=== PATIENT | male | born 1985 | race Caucasian/White ===

== ENCOUNTER 2025-06-30 02:57 | Observation (INO) ==
--- NOTE | 2025-06-30 03:11 | Emergency Department Note ---
Impression & Plan Kidney symptom or sign Admission ED Provider Note HPI: History obtained from patient. The patient is a 39-year-old gentleman who presents emergency department with a chief complaint of left flank pain. Patient states he has had this pain for about the past 3 hours, he states the pain is sharp and severe. Patient states he has not had similar symptoms in the past. Patient states the pain does radiate somewhat down to his left groin. On arrival here to the ED the patient is hypertensive but otherwise hemodynamically stable. He appears to be in mild distress secondary to pain on my initial assessment. ROS: - Per HPI Differential Diagnosis: Kidney stone, pyelonephritis, urinary tract infection, diverticulitis, acute cholecystitis, acute appendicitis, amongst other potential pathologies. *Outpatient medications and allergy history reviewed. PE: General: Alert HEENT: Normocephalic, trachea midline Eyes: Extraocular eye movement is intact, no scleral erythema Pulmonary: Clear to auscultation bilaterally, no wheezing Cardio: Regular rate and rhythm GI: Abdomen is soft to palpation : No suprapubic tenderness, there is mild left-sided CVA tenderness to palpation MSK: No evidence of trauma or malformation of the extremities, no edema Skin: No evidence of rash Neuro: Alert, no focal deficits Psychiatric: Cooperative INDEPENDENT INTERPRETATIONS: campus monitor: (As interpreted by myself): - An order was placed for continuous cardiac monitoring - Patient was noted to be in sinus rhythm with a rate of 62 Interventions provided in ED: - IV morphine, IV Zofran, IV Toradol, IV fluid bolus, IV ceftriaxone Medical Decision Making: IV was established and lab work obtained, patient was placed on campus monitor. Lab work shows a leukocytosis of 12.62, hemoglobin is normal, platelet count is normal, CMP does not show any evidence of any acute kidney injury, there is no transaminitis, lipase is normal. Urinalysis shows 3+ blood, 1+ leukocyte esterase with moderate pyuria, urine nitrite is negative, will send for culture. CT imaging of the abdomen pelvis without contrast shows evidence of a 2 mm kidney stone at the left UVJ with a mildly swollen left kidney with perinephric fat stranding and smudging per the interpreting radiologist. Over suspicion for kidney infection, blood cultures were drawn and the patient was started on ceftriaxone. Urology was consulted and the patient was evaluated at the bedside by Flip Aries, PA-C. Recommendation was made to admit to medicine. I did consult with the hospitalist, Dr. Overton, and the patient was placed for admission in stable condition. Consultants/Discussions held with other healthcare providers: - Urology, Dr. Conn/Flip Chris PA-C - Hospitalist, Dr. Overton Disposition discussion held by myself with: - Patient Diagnosis: 1. Left-sided pyelonephritis, acute 2. Ureteral stone, acute, UVJ 3. Leukocytosis, acute 4. Nausea and vomiting, acute Disposition: Admission Eduar Fabian DO Emergency Medicine Past Med/Surg History Problem List (Updated 06/30/25 @ 05:34 by Eduar Fabian DO) Kidney symptom or sign (Acute) Nephrolithiasis Acid reflux Anxiety Abdominal pannus Medical History History of borderline diabetes mellitus Hx of sleep apnea Surgical History History of root canal procedure 12/2021 No pertinent past surgical history Family History Father Diabetes Grandmother (Maternal) Alzheimer disease Grandfather (Maternal) Diabetes Grandmother (Paternal) Diabetes Mother Obesity Social History Smoking Status: Never smoker Second Hand Exposure: No; Hx Alcohol Use: Yes Hx Substance Use: No Preferred Language: Iraqi Communication Ability: Effective Feels Safe at Home: Yes Sunscreen Use: Yes (as needed. ) Allergies Allergies Allergy/AdvReac Type Severity Reaction Status Date / Time No Known Allergies Allergy Unverified 05/14/19 22:07 Home Meds Home Medications Medication Instructions Recorded Confirmed omeprazole 20 mg tablet,delayed 20 mg PO DAILY 06/05/22 06/05/22 release sertraline 100 mg tablet 100 mg PO DAILY 06/05/22 06/05/22 Results & Data (ED) Vital Signs Vital Signs - 24 hr 06/30/25 03:00 06/30/25 03:31 06/30/25 03:59 Temperature 36.8 C Temperature Source Temporal Artery Scan Pulse Rate 60 59 L Pulse Rate [Apical] Pulse Rhythm Regular Pulse Strength Normal Respiratory Rate 18 Respiratory Effort / Characteristics Non-Labored Spontaneous Respiratory Depth Normal Respiratory Pattern Regular Blood Pressure 175/124 H Blood Pressure [Right Arm] Blood Pressure Mean 141 Blood Pressure Mean [Right Arm] Pulse Oximetry 100 Oxygen Delivery Method Room Air Room Air Sepsis Recent Fever Within 48 Hours No Sepsis New/Unexplained Change in Mental Status No Sepsis Action Taken by Nursing No Action Required 06/30/25 04:01 Temperature Temperature Source Pulse Rate Pulse Rate [Apical] 58 L Pulse Rhythm Pulse Strength Respiratory Rate 16 Respiratory Effort / Characteristics Respiratory Depth Respiratory Pattern Blood Pressure Blood Pressure [Right Arm] 167/101 H Blood Pressure Mean Blood Pressure Mean [Right Arm] 123 Pulse Oximetry 98 Oxygen Delivery Method Room Air Sepsis Recent Fever Within 48 Hours Sepsis New/Unexplained Change in Mental Status Sepsis Action Taken by Nursing Laboratory Data 06/30/25 03:05 06/30/25 03:05 Lab Results 06/30/25 06/30/25 Range/Units 03:05 03:20 WBC 12.62 H (4.8-10.8) K/ul RBC 5.30 (4.70-6.10) M/uL Hgb 16.0 (14.0-18.0) g/dL Hct 46.0 (42.0-52.0) % MCV 86.8 (80.0-100.0) fL MCH 30.2 (25.0-34.0) pg MCHC 34.8 (32.0-36.0) g/dL RDW Std Deviation 40.7 (36.4-46.3) fL RDW Coeff of Neel 12.9 (11.5-14.5) % Plt Count 271 (130-400) K/uL MPV 9.2 L (9.4-12.4) fL Immature Gran % (Auto) 0.6 % Neut % (Auto) 70.5 % Lymph % (Auto) 20.6 % [place] % (Auto) 7.5 % Eos % (Auto) 0.5 % Baso % (Auto) 0.3 % Neut # (Auto) 8.90 H (1.40-6.50) K/uL Lymph # (Auto) 2.60 (1.20-3.40) K/uL [place] # (Auto) 0.95 H (0.11-0.59) K/uL Eos # (Auto) 0.06 (0.00-0.50) K/uL Baso # (Auto) 0.04 (0.00-0.20) K/uL Immature Gran # (Auto) 0.07 (0.01-0.20) K/uL Sodium 140 (136-145) mmol/L Potassium 3.5 (3.5-5.1) mmol/L Chloride 104 (98-107) mmol/L Carbon Dioxide 25 (21-32) mmol/L Anion Gap 11 (3-11) BUN 19 (6-23) mg/dl Creatinine 1.38 (0.6-1.4) mg/dl Est Cr Clr Drug Dosing 14.1 ml/min eGFR 67.13 BUN/Creatinine Ratio 13.8 (10-20) Glucose 143 H (70-99(Fasting)) mg/dl Calcium 9.9 (8.6-10.3) mg/dl Total Bilirubin 0.4 (0.2-1.0) mg/dl AST 24 (13-39) U/L ALT 43 (7-52) U/L Alkaline Phosphatase 77 (34-104) U/L Total Protein 7.8 (6.0-8.3) gm/dl Albumin 4.5 (3.4-5.0) gm/dl Globulin 3.3 (2.5-4.0) gm/dl Albumin/Globulin Ratio 1.4 (0.9-2) Lipase 23 (11-82) U/L Urine Color Red Urine Appearance Turbid A (Clear) Urine pH 6.5 (4.5-7.5) Ur Specific [place] 1.018 (1.000-1.030) Urine Protein 1+ H (Negative) Urine Glucose (UA) Negative (Negative) Urine Ketones Negative (Negative) Urine Blood 3+ H (Negative) Urine Nitrite Negative (Negative) Urine Bilirubin Negative (Negative) Urine Urobilinogen Negative (Negative) Ur Leukocyte Esterase 1+ H (Negative) Urine WBC (Auto) 21-50 H (0-5) /hpf Urine RBC (Auto) >20 H (0-2) /hpf U Hyaline Cast (Auto) 0-2 (0-2) /lpf U Epithel Cells (Auto) 0-2 (0-2) /hpf Urine Bacteria (Auto) None Seen (None Seen) Urine Comment Administered Medications Discontinued Medications Sodium Chloride (Nss) 500 mls @ 999 mls/hr IV .Q31M STA Stop: 06/30/25 03:35 Last Infusion: 06/30/25 04:05 Dose: Infused Documented By: clara Admin: 06/30/25 03:36 Dose: 999 mls/hr Documented By: clara Ceftriaxone Sodium (Rocephin) 2,000 mg in 50 mls @ 100 mls/hr IV NOW STA Stop: 06/30/25 05:35 Last Admin: 06/30/25 05:29 Dose: 100 mls/hr Documented By: clara Ketorolac Tromethamine (Ketorolac Tromethamine 15 Mg/Ml Vial) 15 mg IV NOW ONE Stop: 06/30/25 03:11 Last Admin: 06/30/25 03:36 Dose: 15 mg Documented By: clara Morphine Sulfate (Morphine Sulfate 4 Mg/Ml 1 Ml Carp\Vial) 4 mg IV NOW STA Stop: 06/30/25 03:06 Last Admin: 06/30/25 03:37 Dose: 4 mg Documented By: clara Morphine Sulfate (Morphine Sulfate 4 Mg/Ml 1 Ml Carp\Vial) 4 mg IV NOW STA Stop: 06/30/25 04:21 Last Admin: 06/30/25 04:22 Dose: 4 mg Documented By: clara Ondansetron HCl (Ondansetron Inj 2 Mg/Ml 2 Ml Vial) 4 mg IV NOW STA Stop: 06/30/25 03:06 Last Admin: 06/30/25 03:36 Dose: 4 mg Documented By: clara Tamsulosin HCl (Tamsulosin Hcl 0.4 Mg Cap) 0.4 mg PO NOW ONE Stop: 06/30/25 05:20 Last Admin: 06/30/25 05:30 Dose: 0.4 mg Documented By: clara Imaging Data Radiologist's Impression: Abdomen/Pelvis CT 06/30/25 03:05 EXAM: CT abd pelvis wo con CLINICAL HISTORY: L flank pain TECHNIQUE: Non-contrast CT of the abdomen and pelvis was performed, with the following protocol: axial images, and reconstructed coronal and sagittal images. One of the following dose reduction techniques was utilized for this exam: Automated exposure control, adjustment of the mA and/or kV according to patient size, and use of iterative reconstruction. COMPARISON: none. FINDINGS: Abdomen: Liver: Enalrged meausing 21 cm at mid clavicular line. Normal in shape and density. No focal lesions, cysts, or masses were identified. Gallbladder and Biliary System: The gallbladder is normal in size and shape. No wall thickening, pericholecystic fluid, or gallstones were identified. Pancreas: Pancreatic head, body, and tail are visualized and appear normal in size and density. No pancreatic masses or calcifications were noted. Spleen: Upper limit of size meausing 13 cm. Normal in shape, and density. No splenic lesions or masses were identified. Appendix: The appendix is normal in size without eugene appendiceal fat stranding, and without an appendicolith. No evidence of appendiceal abscess or perforation. Kidneys and Adrenal Glands: Both kidneys are normal in shape and position. Cortical thickness is within normal limits. Prominent left pelvicalyceal system and ureter down to the left vesic-ureteric junction, with a faint hyperdensity is noted measuring 2 mm, likely a minute stone(ser 3, image 309) Mildly swollen left kidney, with mild perinephric and upper periureteric fat stranding and smudging. Right renal lower calyceal non-obstructing stone measuring 4.5 mm. Adrenal glands are unremarkable. Abdominal Aorta and Vessels: The abdominal aorta and major branches are patent without evidence of an aneurysm or significant atherosclerosis. Pelvis: Urinary Bladder: Normal in contour and wall thickness. No intraluminal lesions. Prostate: Normal in size and contour. No masses or abnormal thickening. Seminal Vesicles: Normal appearance without abnormal enlargement or mass. High position of the left testis at the left scrotal neck. Peritoneal and Retroperitoneal Structures: No free fluid or abnormal fluid collections were identified within the abdomen or pelvis. No lymphadenopathy was noted. Bowel: Submucosal fat infiltration of the cecum and meir ascending colon. The visualized bowel loops are normal in caliber and appearance. No evidence of bowel obstruction or wall thickening. Bones and Soft Tissues: Pelvic bones and soft tissues are unremarkable. No fractures or abnormal masses were identified. IMPRESSION: 1. Prominent left pelvicalyceal system and ureter down to the left vesic-ureteric junction, where a faint hyperdensity is noted measuring 2 mm, likely a minute stone. 2. Mildly swollen left kidney, with mild perinephric and upper periureteric fat stranding and smudging. 3. Right renal lower calyceal non-obstructing stone measuring 4.5 mm. 4. Moderate hepatomegaly. 5. Upper limit of the size of the spleen. 6. A high position of the left testis at the left scrotal neck could be reactive and needs clinical correlation. Electronically signed by Bert Carey 06-30-2025 04:57 AM Discharge Plan Visit Data Chief Complaint: Kidney Stone Stated Complaint: LEFT SIDE KIDNEY STONES ED Provider: Eduar Fabian Discharge Problem: Kidney symptom or sign Patient Disposition: Admitted As Inpatient Condition: Fair Forms Stand Alone Forms: [facility] Prescriptions Prescriptions: No Action sertraline 100 mg tablet 100 mg PO DAILY omeprazole 20 mg tablet,delayed release (DR/EC) 20 mg PO DAILY Referrals Referrals: Rodriguez Bonilla MD [Primary Care Provider] -
[2025-06-30] MEDS: SODIUM CHLORIDE 0.9% 500 ML IV STA (03:36)
[2025-06-30] MEDS: ONDANSETRON INJ 2 MG/ML 2 ML VIAL IV STA (03:36)
[2025-06-30] MEDS: KETOROLAC TROMETHAMINE 15 MG/ML VIAL IV ONE (03:36)
[2025-06-30] MEDS: MoRPHine SULFATE 4 MG/ML 1 ML CARP\\VIAL IV STA ×2 (03:37→04:22)
[2025-06-30 03:38] LABS: Hematocrit (blood only) 46.0 % (42.0-52.0); Hemoglobin 16.0 g/dL (14.0-18.0); Immature Granulocytes # (auto) 0.07 K/uL (0.01-0.20); Immature Granulocytes % (auto) 0.6 %; Mean Corpuscular Hemoglobin 30.2 pg (25.0-34.0); Mean Corpuscular Volume 86.8 fL (80.0-100.0); Platelet Count 271 K/uL (130-400); RDW Standard Deviation 40.7 fL (36.4-46.3); Red Blood Count 5.30 M/uL (4.70-6.10); White Blood Count 12.62 K/ul (4.8-10.8)
[2025-06-30 03:55] LABS: Alanine Aminotransferase 43.0 U/L (7-52); Albumin Globulin Ratio 1.4 (0.9-2); Albumin Level 4.5 gm/dl (3.4-5.0); Alkaline Phosphatase 77.0 U/L (34-104); Anion Gap 11.0 (3-11); Bilirubin,Total 0.4 mg/dl (0.2-1.0); Blood Urea Nitrogen 19.0 mg/dl (6-23); Calcium 9.9 mg/dl (8.6-10.3); Carbon Dioxide 25.0 mmol/L (21-32); Chloride 104.0 mmol/L (98-107); Creatinine Clr Calc Pharmacy 14.1 ml/min; Globulin 3.3 gm/dl (2.5-4.0); Glucose 143.0 mg/dl (70-99(Fasting)); Lipase 23.0 U/L (11-82); Potassium 3.5 mmol/L (3.5-5.1); Sodium 140.0 mmol/L (136-145); Total Protein 7.8 gm/dl (6.0-8.3)
[2025-06-30 04:00] LABS: Appearance Urine Turbid (Clear); Bacteria Urine Automated None Seen (None Seen); Cast Urine Automated 0-2 /lpf (0-2); Epithelial Cell Urine Auto 0-2 /hpf (0-2); Glucose Urine UA Negative (Negative); RBC Urine Automated >20 /hpf (0-2); WBC Urine Automated 21-50 /hpf (0-5)
--- NOTE | 2025-06-30 04:57 | CT Scan Report ---
EXAM: CT abd pelvis wo con CLINICAL HISTORY: L flank pain TECHNIQUE: Non-contrast CT of the abdomen and pelvis was performed, with the following protocol: axial images, and reconstructed coronal and sagittal images. One of the following dose reduction techniques was utilized for this exam: Automated exposure control, adjustment of the mA and/or kV according to patient size, and use of iterative reconstruction. COMPARISON: none. FINDINGS: Abdomen: Liver: Enalrged meausing 21 cm at mid clavicular line. Normal in shape and density. No focal lesions, cysts, or masses were identified. Gallbladder and Biliary System: The gallbladder is normal in size and shape. No wall thickening, pericholecystic fluid, or gallstones were identified. Pancreas: Pancreatic head, body, and tail are visualized and appear normal in size and density. No pancreatic masses or calcifications were noted. Spleen: Upper limit of size meausing 13 cm. Normal in shape, and density. No splenic lesions or masses were identified. Appendix: The appendix is normal in size without eugene appendiceal fat stranding, and without an appendicolith. No evidence of appendiceal abscess or perforation. Kidneys and Adrenal Glands: Both kidneys are normal in shape and position. Cortical thickness is within normal limits. Prominent left pelvicalyceal system and ureter down to the left vesic-ureteric junction, with a faint hyperdensity is noted measuring 2 mm, likely a minute stone(ser 3, image 309) Mildly swollen left kidney, with mild perinephric and upper periureteric fat stranding and smudging. Right renal lower calyceal non-obstructing stone measuring 4.5 mm. Adrenal glands are unremarkable. Abdominal Aorta and Vessels: The abdominal aorta and major branches are patent without evidence of an aneurysm or significant atherosclerosis. Pelvis: Urinary Bladder: Normal in contour and wall thickness. No intraluminal lesions. Prostate: Normal in size and contour. No masses or abnormal thickening. Seminal Vesicles: Normal appearance without abnormal enlargement or mass. High position of the left testis at the left scrotal neck. Peritoneal and Retroperitoneal Structures: No free fluid or abnormal fluid collections were identified within the abdomen or pelvis. No lymphadenopathy was noted. Bowel: Submucosal fat infiltration of the cecum and meir ascending colon. The visualized bowel loops are normal in caliber and appearance. No evidence of bowel obstruction or wall thickening. Bones and Soft Tissues: Pelvic bones and soft tissues are unremarkable. No fractures or abnormal masses were identified. IMPRESSION: 1. Prominent left pelvicalyceal system and ureter down to the left vesic-ureteric junction, where a faint hyperdensity is noted measuring 2 mm, likely a minute stone. 2. Mildly swollen left kidney, with mild perinephric and upper periureteric fat stranding and smudging. 3. Right renal lower calyceal non-obstructing stone measuring 4.5 mm. 4. Moderate hepatomegaly. 5. Upper limit of the size of the spleen. 6. A high position of the left testis at the left scrotal neck could be reactive and needs clinical correlation. Electronically signed by Bert Carey 06-30-2025 04:57 AM
--- NOTE | 2025-06-30 05:17 | History & Physical Report ---
Date of Service June 30, 2025 Assessment & Plan (1) Complicated UTI (urinary tract infection): Plan: Assessment and plan below following discussion of case with ED provider and reviewing patient history/pertinent normal/abnormal diagnostic test results. Complicated UTI Obstructing stone No sepsis for now borderline hypertension, elevated secondary to discomfort SHANE on CPAP MASLD Hyperglycemia rule out DM anxiety/mood disorder, patient mildly anxious during exam Admit to MedSurg Urine CS, Ceftriaxone Strain urine Urology consult re: kidney stone (Patient already seen at the ER by CHARLES who recommends Flomax and n.p.o. status in anticipation of procedure.) Analgesia, initiate lisinopril if with persistent BP elevation Check hemoglobin A1c DVT prophylaxis. SCDs Re: Hematuria Full code Text document was generated using [employer] voice recognition software. It may contain grammatical or spelling errors. Kindly contact undersigned for clarification of any documentation item in question. History of Present Illness Chief Complaint: Left flank pain Primary Care Provider: Rodriguez Bonilla MD History obtained from patient and records. Medical history significant for borderline hypertension, SHANE on CPAP, MASLD, anxiety/mood disorder. Patient roused from sleep last night with achy left flank pain associated with nausea, emesis symptoms. Hematuria without fever or chills. Denies chest pain, SOB. No prior episodes as per patient. Ceftriaxone and Flomax administered at the ER. Medical History as above Surgical History : Dental surgery Family History : Kidney stones, alcoholism, heart disease, dementia, DM, seizures Personal/Social history : Non-smoker, occasional EtOH intake, IT work Allergies Allergy/AdvReac Type Severity Reaction Status Date / Time No Known Allergies Allergy Verified 06/30/25 05:45 Home Medications Medication Instructions Recorded Confirmed Type sertraline 100 mg tablet 200 mg PO DAILY 06/30/25 06/30/25 History Past Med/Surg History Problem List (Updated 06/30/25 @ 07:39 by Darshan Overton MD) Complicated UTI (urinary tract infection) Kidney symptom or sign (Acute) Nephrolithiasis Acid reflux Anxiety Abdominal pannus Medical History History of borderline diabetes mellitus Hx of sleep apnea Surgical History History of root canal procedure 12/2021 No pertinent past surgical history Family History Father Diabetes Grandmother (Maternal) Alzheimer disease Grandfather (Maternal) Diabetes Grandmother (Paternal) Diabetes Mother Obesity Social History Smoking Status: Former smoker Smoking End Date: "Very long time ago"; Second Hand Exposure: No; Hx Alcohol Use: Yes Hx Substance Use: No Preferred Language: [place] Communication Ability: Effective Diet Supervisor Required: No Beliefs That Will Affect Care: None Current Living Situation: Spouse and Family Other Information That Helps Us Care for You: No Feels Safe at Home: Yes Safety Concerns: Feels Safe At This Time Sunscreen Use: Yes (as needed. ) Assistive Devices: CPAP Review of Systems Review of Systems: As per HPI, all other systems reviewed and negative Physical Exam Physical Exam: GENERAL: Slightly uncomfortable, morbidly obese, slightly anxious, no respiratory distress SKIN: Normal color, warm HEENT: [place] palpebral conjunctivae, no ptosis, dry buccal mucosa NECK : Supple, short neck, no tenderness CHEST : CTA, no tenderness HEART : RRR, no obvious murmurs ABDOMEN: Some distention, nontender BACK : Left flank tenderness EXTREMITIES : No LE swelling/tenderness, palpable pulses, no other conspicuous deformities noted NEUROLOGIC : Coherent, no facial asymmetry, no other gross focality Results & Data Results & Data Vital Signs (Past 12 Hours) Vital Signs Temp Pulse Pulse Resp BP BP Pulse Ox 06/30/25 04:01 58 L 16 167/101 H 98 06/30/25 03:59 59 L 06/30/25 03:31 06/30/25 03:00 36.8 C 60 18 175/124 H 100 O2 Del Method 06/30/25 04:01 Room Air 06/30/25 03:59 06/30/25 03:31 Room Air 06/30/25 03:00 Room Air Laboratory Results Laboratory Results WBC 12.62 K/ul (4.8-10.8) H 06/30/25 03:05 RBC 5.30 M/uL (4.70-6.10) 06/30/25 03:05 Hgb 16.0 g/dL (14.0-18.0) 06/30/25 03:05 Hct 46.0 % (42.0-52.0) 06/30/25 03:05 MCV 86.8 fL (80.0-100.0) 06/30/25 03:05 MCH 30.2 pg (25.0-34.0) 06/30/25 03:05 MCHC 34.8 g/dL (32.0-36.0) 06/30/25 03:05 RDW Std Deviation 40.7 fL (36.4-46.3) 06/30/25 03:05 RDW Coeff of Neel 12.9 % (11.5-14.5) 06/30/25 03:05 Plt Count 271 K/uL (130-400) 06/30/25 03:05 MPV 9.2 fL (9.4-12.4) L 06/30/25 03:05 Immature Gran % (Auto) 0.6 % 06/30/25 03:05 Neut % (Auto) 70.5 % 06/30/25 03:05 Lymph % (Auto) 20.6 % 06/30/25 03:05 [place] % (Auto) 7.5 % 06/30/25 03:05 Eos % (Auto) 0.5 % 06/30/25 03:05 Baso % (Auto) 0.3 % 06/30/25 03:05 Neut # (Auto) 8.90 K/uL (1.40-6.50) H 06/30/25 03:05 Lymph # (Auto) 2.60 K/uL (1.20-3.40) 06/30/25 03:05 [place] # (Auto) 0.95 K/uL (0.11-0.59) H 06/30/25 03:05 Eos # (Auto) 0.06 K/uL (0.00-0.50) 06/30/25 03:05 Baso # (Auto) 0.04 K/uL (0.00-0.20) 06/30/25 03:05 Immature Gran # (Auto) 0.07 K/uL (0.01-0.20) 06/30/25 03:05 Sodium 140 mmol/L (136-145) 06/30/25 03:05 Potassium 3.5 mmol/L (3.5-5.1) 06/30/25 03:05 Chloride 104 mmol/L (98-107) 06/30/25 03:05 Carbon Dioxide 25 mmol/L (21-32) 06/30/25 03:05 Anion Gap 11 (3-11) 06/30/25 03:05 BUN 19 mg/dl (6-23) 06/30/25 03:05 Creatinine 1.38 mg/dl (0.6-1.4) 06/30/25 03:05 Est Cr Clr Drug Dosing 14.1 ml/min 06/30/25 03:05 eGFR 67.13 06/30/25 03:05 BUN/Creatinine Ratio 13.8 (10-20) 06/30/25 03:05 Glucose 143 mg/dl (70-99(Fasting)) H 06/30/25 03:05 Calcium 9.9 mg/dl (8.6-10.3) 06/30/25 03:05 Total Bilirubin 0.4 mg/dl (0.2-1.0) 06/30/25 03:05 AST 24 U/L (13-39) 06/30/25 03:05 ALT 43 U/L (7-52) 06/30/25 03:05 Alkaline Phosphatase 77 U/L (34-104) 06/30/25 03:05 Total Protein 7.8 gm/dl (6.0-8.3) 06/30/25 03:05 Albumin 4.5 gm/dl (3.4-5.0) 06/30/25 03:05 Globulin 3.3 gm/dl (2.5-4.0) 06/30/25 03:05 Albumin/Globulin Ratio 1.4 (0.9-2) 06/30/25 03:05 Lipase 23 U/L (11-82) 06/30/25 03:05 Urine Color Red 06/30/25 03:20 Urine Appearance Turbid (Clear) A 06/30/25 03:20 Urine pH 6.5 (4.5-7.5) 06/30/25 03:20 Ur Specific [place] 1.018 (1.000-1.030) 06/30/25 03:20 Urine Protein 1+ (Negative) H 06/30/25 03:20 Urine Glucose (UA) Negative (Negative) 06/30/25 03:20 Urine Ketones Negative (Negative) 06/30/25 03:20 Urine Blood 3+ (Negative) H 06/30/25 03:20 Urine Nitrite Negative (Negative) 06/30/25 03:20 Urine Bilirubin Negative (Negative) 06/30/25 03:20 Urine Urobilinogen Negative (Negative) 06/30/25 03:20 Ur Leukocyte Esterase 1+ (Negative) H 06/30/25 03:20 Urine WBC (Auto) 21-50 /hpf (0-5) H 06/30/25 03:20 Urine RBC (Auto) >20 /hpf (0-2) H 06/30/25 03:20 U Hyaline Cast (Auto) 0-2 /lpf (0-2) 06/30/25 03:20 U Epithel Cells (Auto) 0-2 /hpf (0-2) 06/30/25 03:20 Urine Bacteria (Auto) None Seen (None Seen) 06/30/25 03:20 Urine Comment 06/30/25 03:20 Impressions Abdomen/Pelvis CT 06/30/25 03:05 EXAM: CT abd pelvis wo con CLINICAL HISTORY: L flank pain TECHNIQUE: Non-contrast CT of the abdomen and pelvis was performed, with the following protocol: axial images, and reconstructed coronal and sagittal images. One of the following dose reduction techniques was utilized for this exam: Automated exposure control, adjustment of the mA and/or kV according to patient size, and use of iterative reconstruction. COMPARISON: none. FINDINGS: Abdomen: Liver: Enalrged meausing 21 cm at mid clavicular line. Normal in shape and density. No focal lesions, cysts, or masses were identified. Gallbladder and Biliary System: The gallbladder is normal in size and shape. No wall thickening, pericholecystic fluid, or gallstones were identified. Pancreas: Pancreatic head, body, and tail are visualized and appear normal in size and density. No pancreatic masses or calcifications were noted. Spleen: Upper limit of size meausing 13 cm. Normal in shape, and density. No splenic lesions or masses were identified. Appendix: The appendix is normal in size without e[place]ene appendiceal fat stranding, and without an appendicolith. No evidence of appendiceal abscess or perforation. Kidneys and Adrenal Glands: Both kidneys are normal in shape and position. Cortical thickness is within normal limits. Prominent left pelvicalyceal system and ureter down to the left vesic-ureteric junction, with a faint hyperdensity is noted measuring 2 mm, likely a minute stone(ser 3, image 309) Mildly swollen left kidney, with mild perinephric and upper periureteric fat stranding and smudging. Right renal lower calyceal non-obstructing stone measuring 4.5 mm. Adrenal glands are unremarkable. Abdominal Aorta and Vessels: The abdominal aorta and major branches are patent without evidence of an aneurysm or significant atherosclerosis. Pelvis: Urinary Bladder: Normal in contour and wall thickness. No intraluminal lesions. Prostate: Normal in size and contour. No masses or abnormal thickening. Seminal Vesicles: Normal appearance without abnormal enlargement or mass. High position of the left testis at the left scrotal neck. Peritoneal and Retroperitoneal Structures: No free fluid or abnormal fluid collections were identified within the abdomen or pelvis. No lymphadenopathy was noted. Bowel: Submucosal fat infiltration of the cecum and meir ascending colon. The visualized bowel loops are normal in caliber and appearance. No evidence of bowel obstruction or wall thickening. Bones and Soft Tissues: Pelvic bones and soft tissues are unremarkable. No fractures or abnormal masses were identified. IMPRESSION: 1. Prominent left pelvicalyceal system and ureter down to the left vesic-ureteric junction, where a faint hyperdensity is noted measuring 2 mm, likely a minute stone. 2. Mildly swollen left kidney, with mild perinephric and upper periureteric fat stranding and smudging. 3. Right renal lower calyceal non-obstructing stone measuring 4.5 mm. 4. Moderate hepatomegaly. 5. Upper limit of the size of the spleen. 6. A high position of the left testis at the left scrotal neck could be reactive and needs clinical correlation. Electronically signed by Bert Carey 06-30-2025 04:57 AM
--- NOTE | 2025-06-30 05:23 | Urology Consultation ---
Date of Consultation June 30, 2025 Assessment & Plan (1) Nephrolithiasis: The patient is going to be admitted on the hospitalist service. Urology recommendations are as follows: Provide analgesics Provide antiemetics Hydrate with IV fluids Would recommend initiating Flomax for expulsive therapy (I have ordered the first dose of this medication) Due to concern for underlying urinary tract infection antibiotics in form of Rocephin have been initiated should continue. These antibiotics be tailored based on pending culture results Would recommend keeping the patient n.p.o. At this time the patient is nontoxic appearinghe is normotensive without tachycardia or fever and therefore I feel conservative trial of passage is warranted The patient will be reevaluated by the urology dayshift team on 06/30/2025 and determination will be made if the patient would benefit from a cystoscopic intervention Additional recommendations were forthcoming based on his clinical course as it unfolds Supervising Physician Co-Signing Physician Notes Patient seen and examined independently Agree with above Small stone, pain is present but tolerable at the moment We did discuss a variety of different options I think we would likely be able to treat his stone if he elects for surgery later today Will observe for the next few hours he will remain n.p.o. as we make further decisions. Labs are all okay, I do not believe he is infected I think this is simply symptomatic distal obstructing ureteral stone. His was present with him and we answered all questions today History of Present Illness Reason for Consultation: Nephrolithiasis History of Present Illness This is a 39-year-old male who presented to the emergency department secondary to left-sided flank pain that began at approximately midnight on 06/30/2025. Patient notes that the pain radiates to the front of his abdomen somewhat. He denies any fevers, shakes, or chills but does have nausea and vomiting. He also reports that he is having some intermittent hematuria along with some dysuria. He reports he has never had any kidney stones in the past. His most recent oral intake was at approximately 7:00 PM on 06/29/2025. Since arrival to the hospital he has had labs and imaging which I independently reviewed. CT scan of the abdomen pelvis showed the patient had a 2 mm kidney stone in the left renal collecting system. The left kidney was noted to be swollen with perinephric and periureteral fat stranding. Labs included a CBC were white blood cell count was 12.6. Hemoglobin and hematocrit as well as a platelet count were normal. Chemistry profile showed sodium, potassium, BUN, and creatinine were all normal. Urinalysis showed turbid urine which was negative for nitrites but he did have 1+ leukocyte esterase and pyuria with 21- 50 white blood cells per high-power field. There is no bacteria noted on this study. At the time my interview he was resting comfortably in bed he was no distress. Allergies Allergy/AdvReac Type Severity Reaction Status Date / Time No Known Allergies Allergy Verified 06/30/25 05:45 Home Medications Medication Instructions Recorded Confirmed Type sertraline 100 mg tablet 200 mg PO DAILY 06/30/25 06/30/25 History Patient History Medical History History of borderline diabetes mellitus Hx of sleep apnea Surgical History History of root canal procedure 12/2021 No pertinent past surgical history Family History Father Diabetes Grandmother (Maternal) Alzheimer disease Grandfather (Maternal) Diabetes Grandmother (Paternal) Diabetes Mother Obesity Social History Smoking Status: Former smoker Smoking End Date: "Very long time ago"; Second Hand Exposure: No; Hx Alcohol Use: Yes Hx Substance Use: No Preferred Language: Irish Communication Ability: Effective Production Sound Mixer Required: No Beliefs That Will Affect Care: None Current Living Situation: Spouse and Family Other Information That Helps Us Care for You: No Feels Safe at Home: Yes Safety Concerns: Feels Safe At This Time Sunscreen Use: Yes (as needed. ) Assistive Devices: CPAP Review of Systems Review of Systems: All systems reviewed & are unremarkable except as noted in HPI & below Physical Exam Constitutional: WD/WN, vitals as above Eyes: no conjunctival abnormality ENMT: Ears: no hearing impairment and no external ear abnormality Mouth: no oropharynx abnormality Neck: trachea midline Respiratory: normal respiratory effort; no respiratory distress and no labored breathing Cardiovascular: Rate/Rhythm: regular rate and regular rhythm Gastrointestinal (Abdomen): Abdomen is rotund. It is soft without rigidity or signs of peritonitis. He did have some slight tenderness to palpation on the left side of his abdomen Musculoskeletal: No calf tenderness Skin: no rashes Neurologic: moves all extremities Psychiatric: A+Ox3, euthymic affect Genitourinary: Left sided CVA tenderness is noted with percussion. There is no CVA tenderness with percussion on the right Results & Data Vital Signs (Past 12 Hours) Vital Signs Temp Pulse Pulse Resp BP BP Pulse Ox 06/30/25 04:01 58 L 16 167/101 H 98 06/30/25 03:59 59 L 06/30/25 03:31 06/30/25 03:00 36.8 C 60 18 175/124 H 100 O2 Del Method 06/30/25 04:01 Room Air 06/30/25 03:59 06/30/25 03:31 Room Air 06/30/25 03:00 Room Air PG Care Time/CCT Total # of Minutes Spent Total Time Spent with Patient: Total time spent is greater than 50% in coordination of care (as documented) at patient's floor/unit and/or counseling patient: Coding Level of Care Code 63678 IN/OBS CONSULT LVL 5,80M Diagnoses Nephrolithiasis N20.0
[2025-06-30] MEDS: cefTRIAXone SODIUM 2,000 MG/50 ML BAG IV STA (05:29)
[2025-06-30] MEDS: TAMSULOSIN HCL 0.4 MG CAP PO ONE (05:30)
[2025-06-30] MEDS ORDERED: LORazepam 0.5 MG TAB PO PRN (06:11)
[2025-06-30] MEDS ORDERED: MoRPHine SULFATE 4 MG/ML 1 ML CARP\\VIAL IV PRN (06:11)
[2025-06-30] MEDS ORDERED: ACETAMINOPHEN 500 MG TAB PO PRN (06:11)
[2025-06-30] MEDS ORDERED: PROMETHAZINE 12.5 MG/50.5 ML BAG IV PRN (06:12)
[2025-06-30] MEDS: SERTRALINE HCL 100 MG TABLET PO SCH (07:16)
[2025-06-30] MEDS: MoRPHine SULFATE 10 MG/ML CARP/VIAL IV PRN (07:18)
[2025-06-30] MEDS: LACTATED RINGER'S 1,000 ML IV ONE (07:38)
[2025-06-30] MEDS: ALUMINUM/MAGNESIUM SUSP 30 ML UDC PO STA (09:31)
[2025-06-30] MEDS ORDERED: PROPOFOL IV EMULSION 10 MG/ML 20 ML VIAL IV ONE (13:45)
[2025-06-30] MEDS ORDERED: LIDOCAINE 2% 2 ML VIAL/AMP(20MG/ML) INFIL ONE (13:45)
[2025-06-30] MEDS ORDERED: ONDANSETRON INJ 2 MG/ML 2 ML VIAL ONE (13:45)
--- NOTE | 2025-06-30 14:04 | Anesthesiology Consultation ---
Date of Service June 30, 2025 Assessment & Plan Chart Review Chart Review: Acceptable Risk for Surgery and Patient NOT seen in Pre Admission Testing Consults Requested none ASA ASA3 Proposed Anesthesia Anesthesia Type: General History Surgery Operation Date: 06/30/25 09:40 Proposed Procedures p Cystoscopy, Left Ureteroscopy, Laser Lithotripsy and Stent Placement - Maurisio Conn MD Height/Weight Height: 5 ft 11 in Weight: 134.6 kg Allergies Allergy/AdvReac Type Severity Reaction Status Date / Time No Known Allergies Allergy Verified 06/30/25 05:45 Medications Home Medications Medication Instructions Recorded Confirmed Last Taken ciprofloxacin HCl 500 mg tablet 500 mg PO BID 5 days #10 tabs 06/30/25 Unknown (Cipro) ondansetron HCl 4 mg tablet 4 mg PO Q6H PRN nausea and 06/30/25 Unknown vomiting #20 tabs oxycodone 5 mg tablet 5 mg PO Q6H PRN pain #10 tabs 06/30/25 Unknown sertraline 100 mg tablet 200 mg PO DAILY 06/30/25 06/30/25 Unknown tamsulosin 0.4 mg capsule 0.4 mg PO QAM #30 caps 06/30/25 Unknown Active Medications Generic Name Dose Route Start Last Admin Trade Name Freq PRN Reason Stop Dose Admin Lactated Ringer's 1,000 mls @ 60 mls/hr 06/30/25 06:14 06/30/25 07:38 Lr IV 06/30/25 22:53 60 mls/hr .[id number] ONE Administration Morphine Sulfate 6 mg 06/30/25 06:12 06/30/25 11:03 Morphine Sulfate 10 Mg/Ml Carp/Vial IV 07/14/25 06:10 6 mg Q4H PRN Administration Pain Sertraline HCl 200 mg 06/30/25 09:00 06/30/25 07:16 Sertraline Hcl 100 Mg Tablet PO 07/30/25 08:59 200 mg DAILY AMIRAH Administration Past Medical History Medical History History of borderline diabetes mellitus Hx of sleep apnea morbid obesity complex uti kidney stone GERD Anxiety/Mood disorder HTN Exercise / Class Metabolic Activity II 4-5 Yardwork/Stairs/Walk up hill Past Family History Family History Father Diabetes Grandmother (Maternal) Alzheimer disease Grandfather (Maternal) Diabetes Grandmother (Paternal) Diabetes Mother Obesity Past Surgical History Surgical History History of root canal procedure 12/2021 No pertinent past surgical history Past Anesthesia History No Hx of Anesthesia Complications and No Family Hx of Anesthesia Complications History of PONV No Hx of PONV and No Hx of Motion Sickness Social History Smoking Status: Former smoker Smoking End Date: "Very long time ago" Hx Alcohol Use: Yes alcohol intake frequency: holidays/special occasions only Hx Substance Use: No Physical Exam Vital Signs Last Vital Signs Temp 36.9 C 06/30/25 07:21 Pulse 71 06/30/25 07:21 Resp 15 06/30/25 07:21 BP 167/104 H 06/30/25 07:21 Pulse Ox 98 06/30/25 07:21 O2 Del Method Room Air 06/30/25 07:21 Testing Laboratory Results 06/30/25 03:05 06/30/25 03:05 Urine Color Red 06/30/25 03:20 Urine Appearance Turbid (Clear) A 06/30/25 03:20 Urine pH 6.5 (4.5-7.5) 06/30/25 03:20 Ur Specific [place] 1.018 (1.000-1.030) 06/30/25 03:20 Urine Protein 1+ (Negative) H 06/30/25 03:20 Urine Glucose (UA) Negative (Negative) 06/30/25 03:20 Urine Ketones Negative (Negative) 06/30/25 03:20 Urine Nitrite Negative (Negative) 06/30/25 03:20 Ur Leukocyte Esterase 1+ (Negative) H 06/30/25 03:20 Urine WBC (Auto) 21-50 /hpf (0-5) H 06/30/25 03:20 Urine RBC (Auto) >20 /hpf (0-2) H 06/30/25 03:20 U Hyaline Cast (Auto) 0-2 /lpf (0-2) 06/30/25 03:20 U Epithel Cells (Auto) 0-2 /hpf (0-2) 06/30/25 03:20 Urine Bacteria (Auto) None Seen (None Seen) 06/30/25 03:20 Electrocardiogram Date: 05/14/19 Findings: + NSR @ (@ 76)
[2025-06-30] MEDS ORDERED: MIDAZOLAM HCL 1 MG/ML 2ML VIAL ONE (14:17)
[2025-06-30] MEDS: HYDROmorphone INJ 0.5 MG/0.5 ML SYR IV STA (15:05)
--- NOTE | 2025-06-30 15:59 | Discharge Summary ---
Discharge Summary Date of Service June 30, 2025 Principal Dx & Hospital Course #1 = Principal Diagnosis (1) Ureteral calculus, left: (2) Nephrolithiasis: (3) Pyelonephritis of left kidney: (4) Elevated blood pressure reading without diagnosis of hypertension: Plan Patient 39-year-old gentleman who presented to the emergency room with acute left flank pain some nausea and hematuria. No fever or chills. In the emergency room imaging was consistent with possible left obstructing ureteral stone. Patient was admitted to the hospital. Started empirically on antibiotics for presumed urinary tract infection. Given IV fluid resuscitation and pain control. By the following morning had fair amount of improvement in his symptoms. Urology consultation was obtained. They discussed several options with him. Discussed continuing medical management with Flomax and pain control and antibiotics and seeing if he can pass the stone on his own and being discharged to home versus going to the operating room he will this afternoon for stent placement. Patient ultimately decided to move forward with urological intervention. Patient was taken the operating room underwent left ureteral stent placement. Anticipate that his postprocedure course will be uneventful. We discussed prior to going to the operating room that he could be discharged later tonight. Discussed with Dr. Conn that from his standpoint the patient could be discharged after the procedure. Anticipate he will be discharged home and continue course of oral antibiotics, Flomax and follow-up with urology outpatient for definitive intervention. During patient's hospitalization patient's blood pressure was elevated, this most likely due to his acute medical condition and pain. Will need to follow-up blood pressures with his outpatient PCP determine if he needs medical treatment for hypertension ongoing. Notes For Next Care Provider May need treatment for hypertension Follow-up with urology Medication Changes From Visit Flomax Cipro Oxycodone Zofran Admission HPI Per Admitting Provider History obtained from patient and records. Medical history significant for borderline hypertension, SHANE on CPAP, MASLD, anxiety/mood disorder. Patient roused from sleep last night with achy left flank pain associated with nausea, emesis symptoms. Hematuria without fever or chills. Denies chest pain, SOB. No prior episodes as per patient. Ceftriaxone and Flomax administered at the ER. Medical History as above Surgical History : Dental surgery Family History : Kidney stones, alcoholism, heart disease, dementia, DM, seizure s Personal/Social history : Non-smoker, occasional EtOH intake, IT work Admission Exam Per Admitting Provider See H&P Discharge Exam Constitutional: Alert, nontoxic in appearance HEENT: Mucous membranes moist. Lungs: Clear to auscultation, decreased, no wheezes rales or rhonchi CV: S1-S2, regular Abdomen: Soft, mild left flank tenderness Extremities: No significant edema Neuro: No focal deficits Psych: Cooperative, normal mood Updated Medication List Medication Instructions Recorded Confirmed Type ciprofloxacin HCl 500 mg tablet 500 mg PO BID 5 days #10 tabs 06/30/25 Rx (Cipro) ondansetron HCl 4 mg tablet 4 mg PO Q6H PRN nausea and 06/30/25 Rx vomiting #20 tabs oxycodone 5 mg tablet 5 mg PO Q6H PRN pain #10 tabs 06/30/25 Rx sertraline 100 mg tablet 200 mg PO DAILY 06/30/25 06/30/25 History tamsulosin 0.4 mg capsule 0.4 mg PO QAM #30 caps 06/30/25 Rx Hospital Stay Data Consultations 06/30/25 05:09 ED Decision to Admit Stat 06/30/25 05:10 Consult Urology Routine Procedures Performed Operation Date: 06/30/25 09:40 <No data on this case meets the specified criteria> Diagnostic Imagining Performed 06/30/25 03:05 CT abd pelvis wo con Stat 06/30/25 14:00 FL KUB Routine Reviewed imaging, laboratory and diagnostic studies. Pertinent findings as below. WBCs 12.6 Hemoglobin 16.0 Electrolytes within normal range Creatinine 1.38 Blood and urine cultures pending Pending Results Patient Have Any Pending Studies at Discharge: Yes Discharge Instructions Given to Patient (Per Discharging Provider) Complete course of antibiotics Follow-up with your PCP for possible intervention of blood pressure if remains elevated after treating urological issue Follow-up with urology Total Time Total Time Spent Total Time Spent (In Minutes): 33
[2025-06-30] MEDS ORDERED: HYDROmorphone INJ 2 MG/ML SYR/VIAL ONE (16:12)
--- NOTE | 2025-06-30 16:33 | Operative Report ---
PG Post Operative Report Pre & Post Diagnosis Operation Date: 06/30/25 09:40 Pre-Op Diagnosis: Left Ureteral Calculus Post-Op Diagnosis: Left Ureteral Calculus I identified the patient and participated in the time-out.: Yes Procedure Operation Date: 06/30/25 09:40 Actual Procedures p Cystoscopy, Left Ureteroscopy, Laser Lithotripsy and Stent Placement(Left) - Maurisio Conn MD Surgeon Maurisio Conn MD [employer] Head none Estimated Blood Loss 0 Findings Consistent with Post-Op Diagnosis Specimens none Description of Procedure The patient was identified in the preoperative holding area, appropriate informed consents were reviewed and completed and the patient was transferred to the operative suite. Upon arrival, appropriate antibiotics and anesthesia were administered and the patient was placed in dorsal lithotomy position and prepped and draped in sterile fashion. To be in the case I passed a 21 [place]ian cystoscope with 30 degree lens. Inspection of the healthy appearing urethra and a small prostate has to be expected for age. His bladder was healthy but there was some inflammation, particularly around the left hemitrigone and around the left ureteral orifice. There was no stone visualized protruding from the orifice although there was a drop of blood at the UO. After my inspection I turned my attention to this UO and cannulated with a sensor wire. Soon as the wire advanced there was a discharge of some's what appeared to be stone material and old bloody urine. After draining a significant amount of this, I did pass a 10 [place]ian double-lumen catheter into the mid ureter and then withdraw it. This helped to dilate the distal ureter and further material was actively emptying from the obstructed kidney. I clearly saw several small stone fragments pass and given the CT, I think this accounts for the the possible distal obstruction. Given that he was unobstructed and draining well, I proceeded to place a 6 [place]ian by 26 cm double- J stent with a string left attached. There is a good curl in the kidney as well as the bladder. String was taped to his penis. I will plan for stent removal on Saturday morning in the outpatient office. I attest to the content of the Intraoperative Record and any orders documented therein. Any exceptions are noted below.
--- NOTE | 2025-06-30 16:34 | Anesthesiology Progress Note ---
Date of Service June 30, 2025 Anesthesia Post Procedure Vital Signs Vital Signs: Temp Pulse Pulse Pulse Resp BP BP 06/30/25 14:15 36.9 C 98 H 20 166/94 H 06/30/25 07:21 36.9 C 71 15 167/104 H 06/30/25 07:11 37 C 75 18 149/87 H 06/30/25 06:35 85 20 161/100 H 06/30/25 05:43 86 20 167/96 H 06/30/25 05:00 85 165/100 H 06/30/25 04:01 58 L 16 167/101 H 06/30/25 03:59 59 L 06/30/25 03:31 06/30/25 03:00 36.8 C 60 18 175/124 H Pulse Ox O2 Del Method 06/30/25 14:15 96 Room Air 06/30/25 07:21 98 Room Air 06/30/25 07:11 98 Room Air 06/30/25 06:35 95 Room Air 06/30/25 05:43 98 Room Air 06/30/25 05:00 95 Room Air 06/30/25 04:01 98 Room Air 06/30/25 03:59 06/30/25 03:31 Room Air 06/30/25 03:00 100 Room Air Pain Intensity Left Flank: Pain Intensity: 7 Transfer of Care Handoff Completed per policy Notes Mental Status: alert / awake / arousable Patient Amnestic to Procedure: Yes Nausea / Vomiting: adequately controlled Pain: adequately controlled Airway Patency, RR, SpO2: stable & adequate BP & HR: stable & adequate Hydration State: stable & adequate Anesthetic Complications: no major complications apparent
[2025-06-30 18:06] VITALS: TEMP 98.1; O2SAT 97
[2025-06-30 18:32] VITALS: BP 145/88; PULSE 81; RESP 16
[2025-07-01] MEDS ORDERED: cefTRIAXone SODIUM 2,000 MG/50 ML BAG IV SCH (05:00)
--- NOTE | 2025-07-01 07:10 | Fluoroscopy Report ---
INTRAOPERATIVE RADIOGRAPHS CLINICAL HISTORY: Left ureteral stent placement. Fluoro time: 5 seconds Ka,r: 199 mGy FINDINGS: A single spot fluoroscopic view of the left abdomen is correlated with abdominal CT dated 1 08/31/2024. The image shows the proximal end of a left ureteral stent. This is not well-visualized on the acquired image. IMPRESSION: Intraoperative image from a left ureteral stent placement. See operative report for detai led findings. Electronically signed by: Arturo Palmer M.D. 07/01/2025 7:08 AM
[2025-07-01] MEDS ORDERED: TAMSULOSIN HCL 0.4 MG CAP PO SCH (09:00)
--- NOTE | 2025-07-01 09:19 | Coding Query ---
CODING QUERY To promote full compliance with coding requirements relating to patient care, provider participation is requested in all cases of preconstruction manager uncertainty. Please assist us with the question(s) below: Coding Question(s): There is documentation in the record, including the Discharge Summary, of Pyelonephritis of the left kidney, starting on the ER with documentation of, "Left-sided pyelonephritis, acute", however, the 06/30 Urology Consultation had documentation of, "I do not believe he is infected I think this is simply symptomatic distal obstructing ureteral stone". Due to the conflicting documentation, please specify below, in your clinical opinion, regarding Pyelonephritis of the left kidney: ( x ) Possible Acute Pyelonephritis of the Left Kidney ( ) Pyelonephritis of the Left Kidney is Ruled-Out ( ) Other: Please Specify Physician's Response(s): Thank you Sena Canchola Principal Diagnosis: "that condition established after study, to be chiefly responsible for occasioning the admission of the patient to the hospital for care." Co-Existing Principal Diagnosis: "when two or more diagnoses equally meet the criteria for principal diagnosis as determined by the circumstances of admission, diagnostic work up, and/or therapy provided, and the Alphabetic Index, Tabular List, or another coding guideline does not provide sequencing direction, any one of the diagnoses may be sequenced first." "When the physician has documented what appears to be a current diagnosis in the body of the record, but has not included the diagnosis in the final diagnostic statement, the physician should be asked whether the diagnosis should be added." ([facility] 2 QTR90. p3-4) JILLIAND
--- NOTE | 2025-07-01 09:26 | Coding Query ---
BMI To promote full compliance with coding requirements relating to patient care, physician participation is requested in all cases of identity access management architect uncertainty. Please assist us with the question(s) below: Please place an X within the parenthesis (x). If other, please document: BMI 42.1 was documented in this record for this patient with documentation of history of morbid obesity and physical description of morbidly obese. If the BMI is significant, please check the box that provides a more specific associated diagnosis: ( ) Overweight/Obese ( x) Obesity ( ) Morbid obesity ( ) Obesity Hypoventilation Syndrome (OHS) ( ) Heathy weight, not significant ( ) Underweight/Thin ( ) Other, please specify Thank you Sena MANUEL
--- NOTE | 2025-07-01 21:31 | Electrocardiogram Report ---
Test Reason : Blood Pressure : */* mmHG Vent. Rate : 72 BPM Atrial Rate : 72 BPM P-R Int : 166 ms QRS Dur : 84 ms QT Int : 394 ms P-R-T Axes : 41 58 45 degrees QTcB Int : 431 ms Normal sinus rhythm with sinus arrhythmia Normal ECG When compared with ECG of 14-May-2019 21:01, No significant change Confirmed by Fer Key ([id number]) on 07/01/2025 9:31:33 PM Referred By: REFERRED SELF Confirmed By: Fer Key
== END 2025-06-30 19:20 | disposition home or self-care (01) | DRG 660 ==
LOC: ED 02:57 → 3N 05:26 → INTOOBSV 05:26 → 3N 06:35